=== PATIENT | male | born 1975 | race African-American/Black ===

== ENCOUNTER 2019-01-01 00:37 | Emergency (ER) | payer SELFPAY ==
[~2019-01-01] VITALS: Ht 165.1 cm; Wt 82.0 kg
[2019-01-01] MEDS ORDERED: SODIUM CHLORIDE 0.9% 1,000 ML IV ONE (01:49)
[2019-01-01 02:58] LABS: BASOPHILS % 0.5 % (0.0-2.0); EOSINOPHILS % 3.9 % (0.0-5.0); HEMATOCRIT. 42.6 % (42.0-52.0); HEMOGLOBIN. 14.5 g/dL (14.0-18.0); LYMPHOCYTES % 15.6 % (20.0-50.0); MEAN CORPUSCULAR HEMOGLOBIN 30.8 pg (28.0-32.0); MEAN CORPUSCULAR VOLUME 90.7 fL (80.0-94.0); MEAN PLATELET VOLUME 7.9 fl (7.4-10.4); MONOCYTES % 6.6 % (2.0-8.0); NEUTROPHILS % 73.4 % (40.0-76.0); PLATELET 428 x1000/uL (130-400); RED CELL DISTRIBUTION WIDTH 13.7 % (11.6-14.6)
[2019-01-01 03:09] LABS: CHLORIDE 106 mEq/L (98-107)
[2019-01-01 03:14] LABS: ETHANOL BLOOD < 10 mg/dL
[2019-01-01 04:31] LABS: CLARITY URINE CLEAR (CLEAR); COLOR URINE YELLOW (YELLOW); KETONES URINE NEGATIVE (NEGATIVE); LEUKOCYTE ESTERASE URINE 1+ (NEGATIVE); NITRITE URINE NEGATIVE (NEGATIVE); OCCULT BLOOD URINE NEGATIVE (NEGATIVE); PH URINE 5.5 (4.5-8.0); PROTEIN URINE NEGATIVE (NEGATIVE); SPECIFIC GRAVITY URINE 1.033 (1.005-1.030)
[2019-01-01 04:48] LABS: *AMPHETAMINES SCREEN URINE PRESUMTIVE POSITIVE (NEGATIVE); *BARBITURATES SCREEN URINE NEGATIVE (NEGATIVE); *BENZODIAZEPINES SCREEN URINE NEGATIVE (NEGATIVE); *COCAINE SCREEN URINE NEGATIVE (NEGATIVE); METHADONE URINE SCREEN NEGATIVE (NEGATIVE); OPIATES URINE SCREEN NEGATIVE (NEGATIVE)
[2019-01-01 04:49] LABS: CANNABINOID URINE SCREEN PRESUMTIVE POSITIVE (NEGATIVE); PHENCYCLIDINE URINE SCREEN NEGATIVE (NEGATIVE)
[2019-01-01] MEDS ORDERED: ACETAMINOPHEN 500MG TABLET PO ONE (10:15)
[2019-01-01] MEDS ORDERED: IBUPROFEN 600MG TABLET PO ONE (10:15)
[2019-01-01 10:39] VITALS: BP 175/97
== END 2019-01-01 10:48 | disposition home or self-care (01) ==
LOC: ER 00:37 → EDBD 00:37 → ER 10:48
DX: N39.0 Urinary tract infection, site not specified (principal); F16.929 Hallucinogen use, unspecified with intoxication, unspecified; F15.929 Other stimulant use, unspecified with intoxication, unspecified; F10.129 Alcohol abuse with intoxication, unspecified; M79.605 Pain in left leg; M79.604 Pain in right leg; R55 Syncope and collapse; R41.82 Altered mental status, unspecified; Y90.0 Blood alcohol level of less than 20 mg/100 ml
CPT/HCPCS: 36415; 70450; 80048; 80305; 80307; 80320; 80329; 81003; 85025; 96360; 96361; 99284; J7030; Z7610; G0480